=== PATIENT | female | born 1980 | race Caucasian/White ===

== ENCOUNTER 2017-12-05 18:39 | Emergency (ER) | payer BC ==
[2017-12-05] MEDS ORDERED: HYDROcodone/Acetaminophen 5/325 mg Tablet ONE (19:19)
--- NOTE | 2017-12-05 20:49 | RAD ---
THREE VIEWS RIGHT FOOT: 12/05/17 HISTORY: Injury. Pain. COMPARISON: None. FINDINGS: Lisfranc alignment is maintained and the joint space is preserved. Small avulsive fracture involving the proximal fifth metatarsal. Associated soft tissue swelling. No additional fractures. IMPRESSION: Fifth metatarsal fracture. POS: [facility]
--- NOTE | 2017-12-05 20:51 | RAD ---
RIGHT ANKLE THREE VIEWS: 12/05/17 HISTORY: Pain. Tripped eight hours ago. COMPARISON: None. FINDINGS: There is a fracture involving the base of the fifth metatarsal. With regard to the ankle, joint space is preserved. Ankle mortise is intact. No significant soft tiss ue swelling. IMPRESSION: Proximal fifth metatarsal fracture. POS: [facility]
== END 2017-12-05 19:44 | disposition home or self-care (01) ==
LOC: MADERS 18:39
DX: S92.354A Nondisplaced fracture of fifth metatarsal bone, right foot, initial encounter for closed fracture (principal); X50.1XXA Overexertion from prolonged static or awkward postures, initial encounter

== ENCOUNTER 2018-03-20 05:15 | Emergency (ER) | payer BC ==
[2018-03-20] MEDS ORDERED: Adacel (T-DAP) 0.5 ML VIAL ONE (06:02)
[2018-03-20] MEDS ORDERED: Sodium Chloride Irrig Solution 250 ML BOT ONE (07:10)
== END 2018-03-20 06:20 | disposition home or self-care (01) ==
LOC: MADERS 05:15
DX: S51.811A Laceration without foreign body of right forearm, initial encounter (principal); Z23 Encounter for immunization; W26.0XXA Contact with knife, initial encounter
CPT/HCPCS: 12002; 90471; 90715; J2001